=== PATIENT | male | born 1935 | race Caucasian/White ===

== ENCOUNTER 2021-01-01 07:39 | Inpatient (IN) | payer MEDICARE, MEDICAID ==
[~2021-01-01] VITALS: Ht 170.2 cm; Wt 80.4 kg
[2021-01-01 08:55] LABS: CHLORIDE 103 mEq/L (98-107)
[2021-01-01 09:19] LABS: BASOPHILS % 0.3 % (0.0-2.0); EOSINOPHILS % 1.8 % (0.0-5.0); HEMATOCRIT. 36.2 % (42.0-52.0); HEMOGLOBIN. 11.5 g/dL (14.0-18.0); LYMPHOCYTES % 21.5 % (20.0-50.0); MEAN CORPUSCULAR HEMOGLOBIN 28.7 pg (28.0-32.0); MEAN CORPUSCULAR VOLUME 90.3 fL (80.0-94.0); NEUTROPHILS % 68.4 % (40.0-76.0); RED BLOOD CELL COUNT 4.01 mill/uL (4.7-6.1); RED CELL DISTRIBUTION WIDTH 14.8 % (11.6-14.6)
[2021-01-01] MEDS ORDERED: PIPERACILLIN/TAZ 3.375G PREMIX 50 ML IV ONE (10:00)
[2021-01-01] MEDS ORDERED: VANCOMYCIN 1 G PREMIX 200 ML IV ONE (10:00)
[2021-01-01 10:05] LABS: INR 1.1; PROTHROMBIN TIME 11.9 sec (9.6-11.0)
[2021-01-01 10:11] LABS: MEAN PLATELET VOLUME 8.7 fl (7.4-10.4); PLATELET 167 x1000/uL (130-400)
[2021-01-01 10:32] LABS: CLARITY URINE CLEAR (CLEAR); COLOR URINE YELLOW (YELLOW); KETONES URINE NEGATIVE (NEGATIVE); LEUKOCYTE ESTERASE URINE NEGATIVE (NEGATIVE); NITRITE URINE NEGATIVE (NEGATIVE); OCCULT BLOOD URINE NEGATIVE (NEGATIVE); PH URINE 6.5 (4.5-8.0); PROTEIN URINE NEGATIVE (NEGATIVE); SPECIFIC GRAVITY URINE 1.021 (1.005-1.030)
[2021-01-01] MEDS ORDERED: MORPHINE SULFATE 2 MG/ML CPJ (NOT FOR IM USE) IV PRN (18:15)
[2021-01-01] MEDS ORDERED: ONDANSETRON HCL 4MG/2ML INJ IV PRN (18:15)
[2021-01-01] MEDS ORDERED: LORAZEPAM 2MG/ML CPJ IV PRN (18:15)
[2021-01-01] MEDS ORDERED: DOCUSATE SODIUM 100MG CAPSULE PO PRN (18:15)
[2021-01-01] MEDS ORDERED: ACETAMINOPHEN 325MG TABLET PO PRN (18:15)
[2021-01-01] MEDS ORDERED: CLONIDINE 0.1MG TABLET PO PRN (18:15)
[2021-01-01] MEDS ORDERED: IPRATROPIUM/ALBUTEROL 0.5-3(2.5)MG/3ML NEB HHN PRN (18:15)
[2021-01-01] MEDS ORDERED: HYDROCODONE/ACETAMINOPHEN 5/325MG TABLET PO PRN (18:15)
[2021-01-01] MEDS ORDERED: MAGNESIUM/ALUMINUM HYDROXIDE/SIMETHICONE 30ML UDC PO PRN (18:15)
[2021-01-01] MEDS ORDERED: GUAIFENESIN 200MG/10ML SUGAR FREE UDC PO PRN (18:15)
[2021-01-01] MEDS ORDERED: DIPHENHYDRAMINE 50MG/ML VIAL IV PRN (18:15)
[2021-01-01] MEDS ORDERED: NALOXONE HCL 0.4MG/ML VIAL IV PRN (18:30)
[2021-01-01 18:58] LABS: BG BASE EXCESS 3.8 mmol/L (-2.0-2.0); BG CARBOXYHEMOGLOBIN 0.7 % (0.5-1.5); BG DEOXYHEMOGLOBIN 5.1 % (0.0-5.0); BG FRACTION INSPIRED OXYGEN 21; BG HCO3 ACT 29.2 mmol/L (22.0-26.0); BG METHEMOGLOBIN 0.1 % (0.0-1.5); BG OXYGEN SATURATION 94.9 % (92.0-98.5); BG OXYHEMOGLOBIN 94.1 % (94.0-97.0); BG PCO2 47.1 mmHg (35.0-45.0); BG PO2 70.6 mmHg (75.0-100.0); BG SAMPLE SITE RIGHT RADIAL; BG TOTAL HEMOGLOBIN 12.3 g/dL (12.0-18.0); BG VENT MODE ROOM AIR
[2021-01-01] MEDS ORDERED: IOHEXOL-350 100 ML BOTTLE ONE (19:42)
[2021-01-01] MEDS: DEXT 5%/0.45% NACL 1000ML 1,000 ML IV SCH (19:51)
[2021-01-01] MEDS: ENOXAPARIN 100MG/ML SYR SUBCUT SCH (19:57)
[2021-01-01] MEDS: SODIUM CHLORIDE 0.9% INJ 3ML FLUSH IVF SCH (22:04)
[2021-01-02 04:39] LABS: BASOPHILS % 0.1 % (0.0-2.0); EOSINOPHILS % 0.2 % (0.0-5.0); HEMATOCRIT. 33.2 % (42.0-52.0); HEMOGLOBIN. 10.9 g/dL (14.0-18.0); LYMPHOCYTES % 9.2 % (20.0-50.0); MEAN CORPUSCULAR HEMOGLOBIN 29.2 pg (28.0-32.0); MEAN CORPUSCULAR VOLUME 89.1 fL (80.0-94.0); MEAN PLATELET VOLUME 7.1 fl (7.4-10.4); MONOCYTES % 9.5 % (2.0-8.0); PLATELET 182 x1000/uL (130-400); RED BLOOD CELL COUNT 3.72 mill/uL (4.7-6.1); RED CELL DISTRIBUTION WIDTH 14.7 % (11.6-14.6)
[2021-01-02 04:40] LABS: CHLORIDE 105 mEq/L (98-107)
[2021-01-02] MEDS: SODIUM CHLORIDE 0.9% INJ 3ML FLUSH IVF SCH ×2 (06:18→16:20)
[2021-01-02] MEDS: ENOXAPARIN 100MG/ML SYR SUBCUT SCH ×2 (08:16→20:26)
[2021-01-02] MEDS: ASPIRIN 81MG EC TABLET PO SCH (09:00)
[2021-01-02 20:00] VITALS: BP_SYST 138; BP_SYST 150; BP_DIAS 77; BP_DIAS 87
[2021-01-02] MEDS: DEXT 5%/0.45% NACL 1000ML 1,000 ML IV SCH (20:27)
[2021-01-02 22:00] VITALS: BP 171/77
[2021-01-03] VITALS (12 sets, daily range): BP systolic 142–178; BP diastolic 52–99
[2021-01-03] MEDS ORDERED: ATOR10TA MT (02:55)
[2021-01-03] MEDS ORDERED: ALLO100T MT (02:55)
[2021-01-03] MEDS ORDERED: AMLO5TAB88 PO (02:55)
[2021-01-03] MEDS ORDERED: LYR25 MT (02:55)
[2021-01-03] MEDS: LABETALOL 5MG/ML SYR 20 MG/4 ML SYRINGE IV PRN ×2 (05:13→12:21)
[2021-01-03] MEDS: SODIUM CHLORIDE 0.9% INJ 3ML FLUSH IVF SCH ×4 (05:14→21:28)
[2021-01-03 06:15] LABS: BASOPHILS % 0.2 % (0.0-2.0); EOSINOPHILS % 0.3 % (0.0-5.0); HEMATOCRIT. 32.9 % (42.0-52.0); HEMOGLOBIN. 10.6 g/dL (14.0-18.0); LYMPHOCYTES % 9.4 % (20.0-50.0); MEAN CORPUSCULAR HEMOGLOBIN 28.8 pg (28.0-32.0); MEAN CORPUSCULAR VOLUME 89.5 fL (80.0-94.0); MEAN PLATELET VOLUME 7.6 fl (7.4-10.4); MONOCYTES % 12.3 % (2.0-8.0); NEUTROPHILS % 77.8 % (40.0-76.0); PLATELET 180 x1000/uL (130-400); RED BLOOD CELL COUNT 3.67 mill/uL (4.7-6.1); RED CELL DISTRIBUTION WIDTH 14.9 % (11.6-14.6)
[2021-01-03 07:08] LABS: CHLORIDE 104 mEq/L (98-107)
[2021-01-03] MEDS: ASPIRIN 81MG EC TABLET PO SCH (08:01)
[2021-01-03] MEDS: ENOXAPARIN 100MG/ML SYR SUBCUT SCH (09:07)
[2021-01-03 09:46] LABS: BG BASE EXCESS 4.4 mmol/L (-2.0-2.0); BG CARBOXYHEMOGLOBIN 0.3 % (0.5-1.5); BG FRACTION INSPIRED OXYGEN 32; BG HCO3 ACT 30.3 mmol/L (22.0-26.0); BG OXYHEMOGLOBIN 98.7 % (94.0-97.0); BG PCO2 50.9 mmHg (35.0-45.0); BG PH 7.392 (7.350-7.450); BG PO2 148.4 mmHg (75.0-100.0); BG SAMPLE SITE RIGHT RADIAL; BG TOTAL HEMOGLOBIN 11.4 g/dL (12.0-18.0); BG VENT MODE NASAL CANNULA
[2021-01-03] MEDS ORDERED: CARV12.545 MT (10:31)
[2021-01-03] MEDS ORDERED: ATOR20TA65 MT (10:31)
[2021-01-03] MEDS ORDERED: LOSA50TA41 MT (10:31)
[2021-01-03] MEDS ORDERED: POLY250017 MT (10:32)
[2021-01-03] MEDS ORDERED: FURO40TA5 PO (10:32)
[2021-01-03] MEDS ORDERED: CILO50TA MT (10:32)
[2021-01-03] MEDS ORDERED: DULO60CA64 MT (10:32)
[2021-01-03] MEDS: CLOPIDOGREL 75MG TABLET NG SCH (14:50)
[2021-01-03] MEDS: DEXT 5%/0.45% NACL 1000ML 1,000 ML IV SCH (18:10)
[2021-01-03] MEDS: ENOXAPARIN 80MG/0.8ML SYR SUBCUT SCH (21:28)
[2021-01-04] VITALS (12 sets, daily range): BP systolic 120–171; BP diastolic 56–102
[2021-01-04] MEDS: SODIUM CHLORIDE 0.9% INJ 3ML FLUSH IVF SCH ×3 (05:25→21:24)
[2021-01-04] MEDS: CLOPIDOGREL 75MG TABLET NG SCH (10:04)
[2021-01-04] MEDS: ASPIRIN 81MG EC TABLET PO SCH (10:04)
[2021-01-04] MEDS: ENOXAPARIN 80MG/0.8ML SYR SUBCUT SCH ×2 (10:06→22:07)
[2021-01-04 13:22] LABS: BASOPHILS % 0.1 % (0.0-2.0); HEMATOCRIT. 31.1 % (42.0-52.0); HEMOGLOBIN. 10.2 g/dL (14.0-18.0); LYMPHOCYTES % 15.7 % (20.0-50.0); MEAN CORPUSCULAR HEMOGLOBIN 29.2 pg (28.0-32.0); MEAN CORPUSCULAR VOLUME 88.7 fL (80.0-94.0); MEAN PLATELET VOLUME 7.6 fl (7.4-10.4); MONOCYTES % 11.3 % (2.0-8.0); NEUTROPHILS % 72.9 % (40.0-76.0); PLATELET 181 x1000/uL (130-400); RED BLOOD CELL COUNT 3.51 mill/uL (4.7-6.1); RED CELL DISTRIBUTION WIDTH 14.5 % (11.6-14.6)
[2021-01-04 13:26] LABS: CHLORIDE 105 mEq/L (98-107)
[2021-01-04] MEDS: DEXT 5%/0.45% NACL 1000ML 1,000 ML IV SCH (18:37)
[2021-01-04] MEDS: ATORVASTATIN CALCIUM 20MG TABLET NG SCH (22:08)
[2021-01-04] MEDS: AMLODIPINE 2.5MG TABLET NG SCH (22:08)
[2021-01-04] MEDS: CARVEDILOL 6.25 MG TABLET NG SCH (22:08)
[2021-01-05] VITALS (12 sets, daily range): BP systolic 146–188; BP diastolic 45–93
[2021-01-05] MEDS: SODIUM CHLORIDE 0.9% INJ 3ML FLUSH IVF SCH ×3 (05:00→21:57)
[2021-01-05 06:23] LABS: BASOPHILS % 0.3 % (0.0-2.0); EOSINOPHILS % 0.2 % (0.0-5.0); HEMATOCRIT. 29.1 % (42.0-52.0); HEMOGLOBIN. 9.4 g/dL (14.0-18.0); LYMPHOCYTES % 11.5 % (20.0-50.0); MEAN CORPUSCULAR HEMOGLOBIN 28.9 pg (28.0-32.0); MEAN CORPUSCULAR VOLUME 89.1 fL (80.0-94.0); MEAN PLATELET VOLUME 8.4 fl (7.4-10.4); MONOCYTES % 10.6 % (2.0-8.0); NEUTROPHILS % 77.4 % (40.0-76.0); PLATELET 160 x1000/uL (130-400); RED BLOOD CELL COUNT 3.26 mill/uL (4.7-6.1); RED CELL DISTRIBUTION WIDTH 14.4 % (11.6-14.6)
[2021-01-05 06:46] LABS: CHLORIDE 106 mEq/L (98-107)
[2021-01-05] MEDS: ENOXAPARIN 80MG/0.8ML SYR SUBCUT SCH ×2 (09:00→22:05)
[2021-01-05] MEDS: CLOPIDOGREL 75MG TABLET NG SCH (09:04)
[2021-01-05] MEDS: ASPIRIN 81MG EC TABLET PO SCH (09:05)
[2021-01-05] MEDS: AMLODIPINE 2.5MG TABLET NG SCH ×2 (09:05→22:05)
[2021-01-05] MEDS: CARVEDILOL 6.25 MG TABLET NG SCH ×2 (09:05→22:06)
[2021-01-05] MEDS: LABETALOL 5MG/ML SYR 20 MG/4 ML SYRINGE IV PRN (17:29)
[2021-01-05] MEDS: DEXT 5%/0.45% NACL 1000ML 1,000 ML IV SCH (18:59)
[2021-01-05] MEDS: ATORVASTATIN CALCIUM 20MG TABLET NG SCH (22:05)
[2021-01-06] VITALS (10 sets, daily range): BP systolic 111–181; BP diastolic 50–82
[2021-01-06] MEDS: SODIUM CHLORIDE 0.9% INJ 3ML FLUSH IVF SCH ×3 (05:04→21:47)
[2021-01-06 07:16] LABS: BASOPHILS % 0.1 % (0.0-2.0); EOSINOPHILS % 0.3 % (0.0-5.0); HEMATOCRIT. 28.7 % (42.0-52.0); HEMOGLOBIN. 9.4 g/dL (14.0-18.0); MEAN CORPUSCULAR HEMOGLOBIN 29.3 pg (28.0-32.0); MEAN CORPUSCULAR VOLUME 89.8 fL (80.0-94.0); MEAN PLATELET VOLUME 8.3 fl (7.4-10.4); MONOCYTES % 9.6 % (2.0-8.0); PLATELET 170 x1000/uL (130-400); RED CELL DISTRIBUTION WIDTH 14.5 % (11.6-14.6)
[2021-01-06 07:51] LABS: CHLORIDE 105 mEq/L (98-107)
[2021-01-06] MEDS: ASPIRIN 81MG EC TABLET PO SCH (09:00)
[2021-01-06] MEDS: ENOXAPARIN 80MG/0.8ML SYR SUBCUT SCH ×2 (09:00→20:27)
[2021-01-06] MEDS: CARVEDILOL 6.25 MG TABLET NG SCH ×2 (10:19→20:26)
[2021-01-06] MEDS: AMLODIPINE 2.5MG TABLET NG SCH ×2 (10:20→20:27)
[2021-01-06] MEDS: CLOPIDOGREL 75MG TABLET NG SCH (10:20)
[2021-01-06] MEDS: ATORVASTATIN CALCIUM 20MG TABLET NG SCH (20:27)
[2021-01-06] MEDS: DEXT 5%/0.45% NACL 1000ML 1,000 ML IV SCH (20:41)
[2021-01-06] MEDS: LABETALOL 5MG/ML SYR 20 MG/4 ML SYRINGE IV PRN (23:37)
[2021-01-07] VITALS (11 sets, daily range): BP systolic 155–180; BP diastolic 54–72
[2021-01-07] MEDS: LABETALOL 5MG/ML SYR 20 MG/4 ML SYRINGE IV PRN (05:22)
[2021-01-07] MEDS: SODIUM CHLORIDE 0.9% INJ 3ML FLUSH IVF SCH ×3 (05:29→21:53)
[2021-01-07] MEDS: CLOPIDOGREL 75MG TABLET NG SCH (08:26)
[2021-01-07] MEDS: AMLODIPINE 2.5MG TABLET NG SCH (08:26)
[2021-01-07] MEDS: CARVEDILOL 6.25 MG TABLET NG SCH ×2 (08:26→21:51)
[2021-01-07] MEDS: ASPIRIN 81MG TABLET PO SCH (08:34)
[2021-01-07 10:33] LABS: HEMOGLOBIN. 8.7 g/dL (14.0-18.0); MEAN CORPUSCULAR VOLUME 89.2 fL (80.0-94.0); RED CELL DISTRIBUTION WIDTH 14.7 % (11.6-14.6)
[2021-01-07 10:47] LABS: CHLORIDE 106 mEq/L (98-107)
[2021-01-07] MEDS: PANTOPRAZOLE SODIUM 40 MG/VIAL IV SCH (11:14)
[2021-01-07] MEDS: ENOXAPARIN 80MG/0.8ML SYR SUBCUT SCH ×2 (11:14→21:52)
[2021-01-07 13:45] LABS: PLATELET ESTIMATE NORMAL
[2021-01-07 13:46] LABS: MEAN PLATELET VOLUME 9.1 fl (7.4-10.4); PLATELET 274 x1000/uL (130-400)
[2021-01-07] MEDS: PIPERACILLIN/TAZOBACTAM 3.375 G in DEXTROSE 5% WATER 50 ML IV SCH ×2 (17:10→23:34)
[2021-01-07] MEDS: DEXT 5%/0.45% NACL 1000ML 1,000 ML IV SCH (17:19)
[2021-01-07] MEDS: AMLODIPINE 5MG TABLET NG SCH (21:51)
[2021-01-07] MEDS: ATORVASTATIN CALCIUM 20MG TABLET NG SCH (21:51)
[2021-01-08] VITALS (12 sets, daily range): BP systolic 125–154; BP diastolic 48–57
[2021-01-08] MEDS: IPRATROPIUM/ALBUTEROL 0.5-3(2.5)MG/3ML NEB HHN SCH ×4 (00:48→20:54)
[2021-01-08] MEDS: SODIUM CHLORIDE 0.9% INJ 3ML FLUSH IVF SCH ×3 (06:20→21:28)
[2021-01-08] MEDS: PIPERACILLIN/TAZOBACTAM 3.375 G in DEXTROSE 5% WATER 50 ML IV SCH ×3 (06:21→21:29)
[2021-01-08 07:36] LABS: HEMATOCRIT. 30.5 % (42.0-52.0); HEMOGLOBIN. 9.7 g/dL (14.0-18.0); MEAN CORPUSCULAR HEMOGLOBIN 28.5 pg (28.0-32.0); MEAN CORPUSCULAR VOLUME 89.8 fL (80.0-94.0); MEAN PLATELET VOLUME 7.8 fl (7.4-10.4); PLATELET 187 x1000/uL (130-400); RED BLOOD CELL COUNT 3.39 mill/uL (4.7-6.1); RED CELL DISTRIBUTION WIDTH 14.4 % (11.6-14.6)
[2021-01-08 08:03] LABS: CHLORIDE 109 mEq/L (98-107)
[2021-01-08] MEDS: CLOPIDOGREL 75MG TABLET NG SCH (08:49)
[2021-01-08] MEDS: AMLODIPINE 5MG TABLET NG SCH ×2 (08:49→21:27)
[2021-01-08] MEDS: ASPIRIN 81MG TABLET PO SCH (08:50)
[2021-01-08] MEDS: CARVEDILOL 6.25 MG TABLET NG SCH ×2 (08:50→21:27)
[2021-01-08] MEDS: PANTOPRAZOLE SODIUM 40 MG/VIAL IV SCH (08:50)
[2021-01-08] MEDS: ENOXAPARIN 80MG/0.8ML SYR SUBCUT SCH (08:50)
[2021-01-08] MEDS: THIAMINE HCL 100MG TABLET NG SCH (11:22)
[2021-01-08] MEDS: FOLIC ACID 1MG TABLET NG SCH (11:23)
[2021-01-08] MEDS: ZINC SULFATE 220 MG ( 50 ) CAPSULE NG SCH (11:23)
[2021-01-08] MEDS: ASCORBIC ACID 500 MG TABLET PO SCH (11:23)
[2021-01-08 11:32] LABS: PLATELET ESTIMATE NORMAL
[2021-01-08] MEDS: DEXT 5%/0.45% NACL 1000ML 1,000 ML IV SCH (17:21)
[2021-01-08] MEDS: ATORVASTATIN CALCIUM 20MG TABLET NG SCH (21:27)
[2021-01-08] MEDS: ENOXAPARIN 100MG/ML SYR SUBCUT SCH (21:28)
[2021-01-09] VITALS (13 sets, daily range): BP systolic 100–155; BP diastolic 45–73
[2021-01-09] MEDS: IPRATROPIUM/ALBUTEROL 0.5-3(2.5)MG/3ML NEB HHN SCH ×4 (02:22→21:34)
[2021-01-09] MEDS: SODIUM CHLORIDE 0.9% INJ 3ML FLUSH IVF SCH ×3 (06:41→21:55)
[2021-01-09] MEDS: PIPERACILLIN/TAZOBACTAM 3.375 G in DEXTROSE 5% WATER 50 ML IV SCH ×3 (06:41→21:54)
[2021-01-09] MEDS: ACETYLCYSTEINE 100MG/ML 10% VIAL 4ML INH SCH ×2 (09:00→14:55)
[2021-01-09] MEDS: ENOXAPARIN 100MG/ML SYR SUBCUT SCH (09:18)
[2021-01-09] MEDS: CARVEDILOL 6.25 MG TABLET NG SCH ×2 (09:19→21:55)
[2021-01-09] MEDS: FAMOTIDINE 20MG TABLET PO SCH ×2 (09:19→21:54)
[2021-01-09] MEDS: AMLODIPINE 5MG TABLET NG SCH ×2 (09:19→21:54)
[2021-01-09] MEDS: THIAMINE HCL 100MG TABLET NG SCH (09:19)
[2021-01-09] MEDS: ZINC SULFATE 220 MG ( 50 ) CAPSULE NG SCH (09:19)
[2021-01-09] MEDS: FOLIC ACID 1MG TABLET NG SCH (09:19)
[2021-01-09] MEDS: ASCORBIC ACID 500 MG TABLET PO SCH (09:19)
[2021-01-09] MEDS: ASPIRIN 81MG TABLET PO SCH (09:19)
[2021-01-09] MEDS: CLOPIDOGREL 75MG TABLET NG SCH (09:19)
[2021-01-09] MEDS: DEXT 5%/0.45% NACL 1000ML 1,000 ML IV SCH (21:54)
[2021-01-09] MEDS: ATORVASTATIN CALCIUM 20MG TABLET NG SCH (21:54)
[2021-01-10] VITALS (12 sets, daily range): BP systolic 105–150; BP diastolic 44–62
[2021-01-10] MEDS: IPRATROPIUM/ALBUTEROL 0.5-3(2.5)MG/3ML NEB HHN SCH ×2 (01:29→08:55)
[2021-01-10] MEDS: PIPERACILLIN/TAZOBACTAM 3.375 G in DEXTROSE 5% WATER 50 ML IV SCH (05:24)
[2021-01-10] MEDS: SODIUM CHLORIDE 0.9% INJ 3ML FLUSH IVF SCH (05:24)
[2021-01-10] MEDS: ASCORBIC ACID 500 MG TABLET PO SCH (08:38)
[2021-01-10] MEDS: FAMOTIDINE 20MG TABLET PO SCH (08:38)
[2021-01-10] MEDS: ZINC SULFATE 220 MG ( 50 ) CAPSULE NG SCH (08:38)
[2021-01-10] MEDS: FOLIC ACID 1MG TABLET NG SCH (08:38)
[2021-01-10] MEDS: THIAMINE HCL 100MG TABLET NG SCH (08:39)
[2021-01-10] MEDS: CARVEDILOL 6.25 MG TABLET NG SCH (08:39)
[2021-01-10] MEDS: AMLODIPINE 5MG TABLET NG SCH (08:39)
[2021-01-10] MEDS: ACETYLCYSTEINE 100MG/ML 10% VIAL 4ML INH SCH (08:55)
[2021-01-10] MEDS ORDERED: MORPHINE SULFATE 250 MG in DEXT 5% WATER 240 ML IV PRN (13:00)
[2021-01-11] VITALS: BP 90/35
== END 2021-01-11 06:46 | DRG 64 ==
LOC: ER 07:39 → MICUSO 11:23 → EDBEDREQ 11:24 → EDBEDREQTM 11:24 → EDBEDREQSVC 11:24 → 3WST 01-02 17:24
PROVIDERS: ADMIT Internal Medicine; ATTEND Internal Medicine
PROC: 5A0935A Assistance with Respiratory Ventilation, Less than 24 Consecutive Hours, High Flow/Velocity Cannula (ICD-10-PCS; principal; 2021-01-08)
DX: I63.512 Cerebral infarction due to unspecified occlusion or stenosis of left middle cerebral artery (principal); I50.23 Acute on chronic systolic (congestive) heart failure; J69.0 Pneumonitis due to inhalation of food and vomit; J96.00 Acute respiratory failure, unspecified whether with hypoxia or hypercapnia; E46 Unspecified protein-calorie malnutrition; E87.1 Hypo-osmolality and hyponatremia; G81.91 Hemiplegia, unspecified affecting right dominant side; G93.40 Encephalopathy, unspecified; I44.2 Atrioventricular block, complete; I48.21 Permanent atrial fibrillation; E87.2 Acidosis; D64.9 Anemia, unspecified; E11.9 Type 2 diabetes mellitus without complications; E78.00 Pure hypercholesterolemia, unspecified; E78.5 Hyperlipidemia, unspecified; H51.0 Palsy (spasm) of conjugate gaze; I11.0 Hypertensive heart disease with heart failure; I25.10 Atherosclerotic heart disease of native coronary artery without angina pectoris; M10.9 Gout, unspecified; E88.09 Other disorders of plasma-protein metabolism, not elsewhere classified; R13.10 Dysphagia, unspecified; Z66 Do not resuscitate; Z95.0 Presence of cardiac pacemaker; Z82.49 Family history of ischemic heart disease and other diseases of the circulatory system; Z68.27 Body mass index [BMI] 27.0-27.9, adult; I65.21 Occlusion and stenosis of right carotid artery
CPT/HCPCS: 36415; 36600; 70496; 70498; 71045; 80048; 80053; 80061; 81003; 82375; 82805; 82962; 83605; 83735; 84145; 84443; 84484; 85025; 92610; 93005; 93306; 93880; 93970; 94640; 97166; 99291; A6261; C9113; J1200; J1650; J2060; J2270; J2274; J2405; J2543; J3370; J3490; J7060; J7608; Q9967